=== PATIENT | male | born 1960 | race Caucasian/White ===

== ENCOUNTER 2019-10-14 08:59 | Outpatient (REF) | payer OTHER, SELFPAY ==
[2019-10-14 19:50] LABS: Abs Immature Grans 0.02 k/cumm (0.0-0.09); Absolute Basophil Count 0.02 k/cumm (0.0-0.2); Absolute Lymphocyte Count 2.05 k/cumm (1.2-3.4); Absolute Neutrophil Count 4.28 k/cumm (1.2-6.7); Basophils % 0.3; HCT 43.5 % (40.0-50.0); HGB 14.8 g/dL (13.5-17.5); Immature Grans % 0.3 %; Lymphocytes % 27.4; Mean Corpuscular Hemoglobin 29.5 pg (27.0-33.0); Mean Corpuscular Volume 86.8 fL (80-95); Mean Platelet Volume 10.5 fL (8.0-11.0); Monocytes % 10.7; Neutrophils % 57.3; Platelet Count 200 x1000/uL (130-400); RBC 5.01 m/cumm (4.50-6.00); RBC Distribution Width 13.4 % (11.8-14.1); White Blood Cell Count 7.47 k/cumm (4.4-10.8)
[2019-10-14 20:15] LABS: ALT 37 U/L (16-63); AST 28 U/L (15-37); Albumin 3.7 g/dL (3.4-5.0); Alkaline Phosphatase 106 U/L (46-116); Anion Gap 8.8 mmol/L (3-11); BUN 30 mg/dL (7-18); Bilirubin, Total 0.4 mg/dL (0.2-1.0); CO2 26.2 mmol/L (21.0-32.0); CREATININE 1.31 mg/dL (0.70-1.30); Calcium 8.8 mg/dL (8.5-10.1); Calculated LDL 76 mg/dL (<100); Chloride 105 mmol/L (98-107); Cholesterol 159 mg/dL (<200); Estimated GFR 56.01 (mL/min/1.73m2); Glucose 128 mg/dL (74-106); HDL Cholesterol 24 mg/dL (40-60); Potassium 4.5 mmol/L (3.5-5.1); Sodium 140 mmol/L (136-145); TSH (W/Ref FT4) 0.78 uIU/mL (0.36-3.74); Total Protein 6.9 g/dL (6.4-8.2); Triglyceride 297 mg/dL (<150)
== END 2019-10-14 09:19 ==
LOC: NCHCN 08:59
PROVIDERS: PCP Internal Medicine; Visit Provider Physician Assistant
DX: I10 Essential (primary) hypertension (principal); E78.5 Hyperlipidemia, unspecified; I50.9 Heart failure, unspecified; I25.10 Atherosclerotic heart disease of native coronary artery without angina pectoris; G47.30 Sleep apnea, unspecified; Z87.891 Personal history of nicotine dependence
CPT/HCPCS: 80053; 80061; 84443; 85025

== ENCOUNTER 2019-10-22 20:19 | Outpatient (REF) | payer OTHER, SELFPAY ==
[2019-10-22 19:27] LABS: Hemoglobin A1C 5.7 % (3.8-5.6)
== END 2019-10-22 20:39 ==
LOC: NCHCN 20:19
PROVIDERS: PCP Internal Medicine; Visit Provider Physician Assistant
DX: R73.9 Hyperglycemia, unspecified (principal)
CPT/HCPCS: 83036

== ENCOUNTER 2020-04-06 15:19 | Outpatient (REF) | payer OTHER, SELFPAY ==
[2020-04-06 21:20] LABS: Iron 52 ug/dL (65-175); Total Iron Binding Capacity 255 ug/dL (250-450); Transferrin Sat 20 % (20-55)
[2020-04-06 21:29] LABS: ALT 25 U/L (16-63); AST 18 U/L (15-37); Albumin 3.4 g/dL (3.4-5.0); Alkaline Phosphatase 105 U/L (46-116); Anion Gap 9.4 mmol/L (3-11); BUN 28 mg/dL (7-18); Bilirubin, Total 0.3 mg/dL (0.2-1.0); CO2 24.6 mmol/L (21.0-32.0); CREATININE 1.38 mg/dL (0.70-1.30); Calcium 9.1 mg/dL (8.5-10.1); Chloride 106 mmol/L (98-107); Estimated GFR 52.74 (mL/min/1.73m2); Ferritin 706 ng/mL (26-388); Glucose 92 mg/dL (74-106); Potassium 4.5 mmol/L (3.5-5.1); Sodium 140 mmol/L (136-145); Total Protein 6.6 g/dL (6.4-8.2)
[2020-04-09 10:00] LABS: COVID-19 RT-PCR Result NEGATIVE (Negative)
== END 2020-04-06 15:39 ==
LOC: NCHCN 15:19
PROVIDERS: PCP Internal Medicine; Visit Provider Physician Assistant
DX: R73.03 Prediabetes (principal); I10 Essential (primary) hypertension; I50.9 Heart failure, unspecified; R05 Cough
CPT/HCPCS: 80053; U0003; 82728; 83540; 83550

== ENCOUNTER → 2020-04-20 11:39 | Outpatient (REF) | payer OTHER, SELFPAY ==
[2020-04-20 20:57] LABS: Ferritin 784 ng/mL (26-388)
[2020-04-26 12:15] LABS: Specimen WB Whole Blood
== END ==
LOC: NCHCN 11:39
PROVIDERS: PCP Internal Medicine; Visit Provider Physician Assistant
DX: R78.89 Finding of other specified substances, not normally found in blood (principal); M25.552 Pain in left hip
CPT/HCPCS: 81256; 82728

== ENCOUNTER 2020-07-12 16:49 | Outpatient (REF) | payer OTHER, SELFPAY ==
[2020-07-12 20:00] LABS: Anion Gap 9.8 mmol/L (3-11); BUN 19 mg/dL (7-18); CO2 26.2 mmol/L (21.0-32.0); CREATININE 1.2 mg/dL (0.70-1.30); Calcium 8.9 mg/dL (8.5-10.1); Chloride 105 mmol/L (98-107); Ferritin 627 ng/mL (26-388); Glucose 96 mg/dL (74-106); Potassium 4.4 mmol/L (3.5-5.1); Sodium 141 mmol/L (136-145)
== END 2020-07-12 16:50 | disposition home or self-care (01) ==
LOC: NCHCN 16:49
PROVIDERS: PCP Internal Medicine; Visit Provider Physician Assistant
DX: R79.89 Other specified abnormal findings of blood chemistry (principal); I10 Essential (primary) hypertension
CPT/HCPCS: 80048; 82728

== ENCOUNTER 2020-07-19 13:02 | Outpatient (REF) | payer OTHER, SELFPAY ==
[2020-07-20 16:30] LABS: COVID-19 RT-PCR UVMMC Result Positive (Negative)
== END 2020-07-19 13:03 | disposition home or self-care (01) ==
LOC: NCHCN 13:02
PROVIDERS: PCP Physician Assistant; Visit Provider Physician Assistant
DX: Z20.822 Contact with and (suspected) exposure to COVID-19 (principal)
CPT/HCPCS: U0003

== ENCOUNTER 2020-12-22 15:55 | Outpatient (REF) | payer OTHER, SELFPAY ==
[2020-12-24 11:38] LABS: COVID-19 RT-PCR UVMMC Result Negative (Negative)
== END 2020-12-22 15:56 | disposition home or self-care (01) ==
LOC: NCHCN 15:55
PROVIDERS: PCP Physician Assistant; Visit Provider Physician Assistant
DX: Z20.822 Contact with and (suspected) exposure to COVID-19; Z01.812 Encounter for preprocedural laboratory examination
CPT/HCPCS: U0003

== ENCOUNTER 2021-01-18 10:36 | Outpatient (REF) | payer OTHER, SELFPAY ==
[2021-01-18 20:18] LABS: HCT 44.8 % (40.0-50.0); MCH 28.7 pg (27.0-33.0); MCHC 33.5 % (32.0-36.0); MCV 85.8 fL (80-95); MPV 10.4 fL (8.0-11.0); Platelet Count 197 10^3/uL (130-400); RBC 5.22 10^6/uL (4.36-5.78); RDW 12.5 % (11.8-14.1); RDW-SD 39.3 fL; WBC 7.08 10^3/uL (4.4-10.8)
[2021-01-18 20:27] LABS: ALT 32 U/L (16-63); AST 22 U/L (15-37); Albumin 3.7 g/dL (3.4-5.0); Alkaline Phosphatase 99 U/L (46-116); Anion Gap 10.9 mmol/L (3-11); BUN 26 mg/dL (7-18); Bilirubin, Total 0.4 mg/dL (0.2-1.0); CO2 27.1 mmol/L (21.0-32.0); CREATININE 1.2 mg/dL (0.70-1.30); Calcium 9.3 mg/dL (8.5-10.1); Calculated LDL 97 mg/dL (<100); Chloride 104 mmol/L (98-107); Cholesterol 168 mg/dL (<200); Glucose 110 mg/dL (74-106); HDL Cholesterol 32 mg/dL (40-60); Potassium 4.6 mmol/L (3.5-5.1); Sodium 142 mmol/L (136-145); Total Protein 7.1 g/dL (6.4-8.2); Triglyceride 196 mg/dL (<150)
[2021-01-26 14:46] LABS: Testosterone, Free 10.3 ng/dL (3.67-13.9); Testosterone, Total 294 ng/dL (240-950)
== END 2021-01-18 10:37 | disposition home or self-care (01) ==
LOC: NCHCN 10:36
PROVIDERS: PCP Physician Assistant; Visit Provider Physician Assistant
DX: R53.83 Other fatigue (principal); K70.0 Alcoholic fatty liver; I10 Essential (primary) hypertension; I50.9 Heart failure, unspecified; E66.9 Obesity, unspecified
CPT/HCPCS: 80053; 80061; 84402; 84403; 85027

== ENCOUNTER 2021-04-13 18:53 | Outpatient (REF) | payer MEDICARE, SELFPAY ==
[2021-04-13 19:15] LABS: ESR 61 mm/hr (0-20)
[2021-04-13 19:19] LABS: Abs Immature Grans 0.13 10^3/uL (0.0-0.06); Absolute Basophil Count 0.03 10^3/uL (0.0-0.2); Absolute Eosinophil Count 0.25 10^3/uL (0.0-0.7); Absolute Lymphocyte Count 1.67 10^3/uL (1.2-3.4); Absolute Monocyte Count 1.09 10^3/uL (0.1-0.8); Basophils % 0.2; Eosinophils % 1.7; HCT 44.2 % (40.0-50.0); HGB 14.5 g/dL (13.5-17.5); Immature Grans % 0.9; Lymphocytes % 11.3; MCHC 32.8 % (32.0-36.0); MCV 85.3 fL (80-95); Monocytes % 7.4; Neutrophils % 78.5; Nucleated RBC 0 %; Platelet Count 319 10^3/uL (130-400); RBC 5.18 10^6/uL (4.36-5.78); RDW 12.5 % (11.8-14.1); RDW-SD 38.7 fL; WBC 14.79 10^3/uL (4.4-10.8)
[2021-04-13 19:21] LABS: Absolute Neutrophil Count 11.61 10^3/uL (1.2-6.7)
[2021-04-13 19:36] LABS: C-Reactive Protein 7.51 mg/dL (0.0-0.3)
== END 2021-04-13 18:54 | disposition home or self-care (01) ==
LOC: NCHCN 18:53
PROVIDERS: PCP Physician Assistant; Visit Provider Nurse Practitioner Family
DX: M54.30 Sciatica, unspecified side (principal); I10 Essential (primary) hypertension
CPT/HCPCS: 85652; 85025; 86140

== ENCOUNTER 2021-10-03 08:33 | Outpatient (REF) | payer MEDICARE, SELFPAY ==
[2021-10-03 19:23] LABS: ALT 27 U/L (16-63); AST 17 U/L (15-37); Albumin 3.4 g/dL (3.4-5.0); Alkaline Phosphatase 105 U/L (46-116); Anion Gap 9.7 mmol/L (3-11); BUN 32 mg/dL (7-18); Bilirubin, Total 0.3 mg/dL (0.2-1.0); CO2 24.3 mmol/L (21.0-32.0); CREATININE 1.3 mg/dL (0.70-1.30); Calcium 8.7 mg/dL (8.5-10.1); Chloride 106 mmol/L (98-107); Estimated GFR 56.12 (mL/min/1.73m2); Glucose 124 mg/dL (74-106); Potassium 4.1 mmol/L (3.5-5.1); Sodium 140 mmol/L (136-145); TSH 2.11 uIU/mL (0.36-3.74); Total Protein 6.6 g/dL (6.4-8.2)
== END 2021-10-03 08:34 | disposition home or self-care (01) ==
LOC: LBN 08:33
PROVIDERS: PCP Physician Assistant; Visit Provider Physician Assistant
DX: I50.20 Unspecified systolic (congestive) heart failure (principal)
CPT/HCPCS: 80053; 84443

== ENCOUNTER 2023-04-05 15:38 | Outpatient (REF) | payer MEDICARE, SELFPAY ==
[2023-04-05 19:39] LABS: ALT 22 U/L (16-63); AST 19 U/L (15-37); Albumin 3.5 g/dL (3.4-5.0); Alkaline Phosphatase 104 U/L (46-116); Anion Gap 11.1 mmol/L (3-11); BUN 22 mg/dL (7-18); Bilirubin, Total 0.4 mg/dL (0.2-1.0); CO2 24.9 mmol/L (21.0-32.0); CREATININE 1.4 mg/dL (0.70-1.30); Calcium 9.2 mg/dL (8.5-10.1); Chloride 107 mmol/L (98-107); Estimated GFR 56.83 (mL/min/1.73m2); Glucose 101 mg/dL (74-106); Potassium 4.3 mmol/L (3.5-5.1); Sodium 143 mmol/L (136-145); Total Protein 7.3 g/dL (6.4-8.2)
== END 2023-04-05 15:39 | disposition home or self-care (01) ==
LOC: NCHCN 15:38
PROVIDERS: PCP Physician Assistant; Visit Provider Physician Assistant
DX: R73.03 Prediabetes (principal)
CPT/HCPCS: 80053; 83036

== ENCOUNTER 2023-10-04 14:39 | Outpatient (REF) | payer MEDICARE, SELFPAY ==
[2023-10-04 18:58] LABS: Abs Immature Grans 0.03 10^3/uL (0.0-0.06); Absolute Basophil Count 0.06 10^3/uL (0.0-0.2); Absolute Eosinophil Count 0.33 10^3/uL (0.0-0.7); Absolute Monocyte Count 0.82 10^3/uL (0.1-0.8); Absolute Neutrophil Count 5.33 10^3/uL (1.2-6.7); Basophils % 0.7 %; HCT 44.4 % (40.0-50.0); HGB 15.6 g/dL (13.5-17.5); Immature Grans % 0.4 %; Lymphocytes % 20.6 %; MCHC 35.1 % (32.0-36.0); MCV 85 fL (80-95); MPV 10.7 fL (8.0-11.0); Monocytes % 9.9 %; Neutrophils % 64.4 %; Platelet Count 208 10^3/uL (130-400); RDW 12.6 % (11.8-14.1); WBC 8.27 10^3/uL (4.4-10.8)
[2023-10-04 19:15] LABS: ALT 25 U/L (16-63); AST 18 U/L (15-37); Albumin 3.4 g/dL (3.4-5.0); Alkaline Phosphatase 110 U/L (46-116); Anion Gap 8.2 mmol/L (3-11); BUN 20 mg/dL (7-18); Bilirubin, Total 0.5 mg/dL (0.2-1.0); CO2 26.8 mmol/L (21.0-32.0); CREATININE 1.2 mg/dL (0.70-1.30); Calcium 9.2 mg/dL (8.5-10.1); Chloride 106 mmol/L (98-107); Estimated GFR 67.95 (mL/min/1.73m2); Glucose 105 mg/dL (74-106); Potassium 4.4 mmol/L (3.5-5.1); Sodium 141 mmol/L (136-145)
== END 2023-10-04 14:40 | disposition home or self-care (01) ==
LOC: NCHCN 14:39
PROVIDERS: PCP Physician Assistant; Visit Provider Physician Assistant
DX: K76.0 Fatty (change of) liver, not elsewhere classified (principal)
CPT/HCPCS: 80053; 85025

== ENCOUNTER 2024-10-06 15:35 | Outpatient (REF) | payer MEDICARE, SELFPAY ==
[2024-10-06 21:36] LABS: Abs Immature Grans 0.02 10^3/uL (0.0-0.06); Absolute Basophil Count 0.04 10^3/uL (0.0-0.2); Absolute Eosinophil Count 0.39 10^3/uL (0.0-0.7); Absolute Monocyte Count 0.65 10^3/uL (0.1-0.8); Absolute Neutrophil Count 4.86 10^3/uL (1.2-6.7); Basophils % 0.5 %; Eosinophils % 5.1 %; HCT 45.3 % (40.0-50.0); HGB 15.5 g/dL (13.5-17.5); Immature Grans % 0.3 %; Lymphocytes % 22.2 %; MCH 29.5 pg (27.0-33.0); MCHC 34.2 % (32.0-36.0); MCV 86 fL (80-95); MPV 11.5 fL (8.0-11.0); Monocytes % 8.5 %; Neutrophils % 63.4 %; Platelet Count 184 10^3/uL (130-400); RBC 5.26 10^6/uL (4.36-5.78); RDW 12.9 % (11.8-14.1); RDW-SD 40.3 fL; WBC 7.66 10^3/uL (4.4-10.8)
[2024-10-06 22:21] LABS: ALT 27 U/L (16-63); AST 24 U/L (15-37); Albumin 3.7 g/dL (3.4-5.0); Alkaline Phosphatase 92 U/L (46-116); Anion Gap 5.8 mmol/L (3-11); BUN 27 mg/dL (7-18); Bilirubin, Total 0.6 mg/dL (0.2-1.0); CO2 28.2 mmol/L (21.0-32.0); CREATININE 1.3 mg/dL (0.70-1.30); Calcium 9.4 mg/dL (8.5-10.1); Calculated LDL 85 mg/dL (<100); Chloride 105 mmol/L (98-107); Cholesterol 160 mg/dL (<200); Estimated GFR 61.35 (mL/min/1.73m2); Folate 16.9 ng/mL (8.6-20.0); Glucose 110 mg/dL (74-106); HDL Cholesterol 32 mg/dL (>or=40); Potassium 4.5 mmol/L (3.5-5.1); Sodium 139 mmol/L (136-145); TSH (W/Ref FT4) 1.27 uIU/mL (0.36-3.74); Total Protein 7.3 g/dL (6.4-8.2); Triglyceride 217 mg/dL (<150); Vitamin B12 282 pg/mL (193-986)
[2024-10-07 18:48] LABS: HIV-1/2 Ag & Ab Screen Negative (Negative)
[2024-10-07 18:50] LABS: Hepatitis C Ab w Rflx HCV PCR Negative (Negative)
== END 2024-10-06 15:36 | disposition home or self-care (01) ==
LOC: NCHCN 15:35
PROVIDERS: PCP Physician Assistant; Visit Provider Physician Assistant
DX: I25.10 Atherosclerotic heart disease of native coronary artery without angina pectoris (principal); R20.2 Paresthesia of skin; Z11.59 Encounter for screening for other viral diseases; Z11.4 Encounter for screening for human immunodeficiency virus [HIV]
CPT/HCPCS: 80053; 80061; 86803; 87389; 82607; 82746; 84443; 85025